=== PATIENT | male | born 1995 | race Two or more races ===

== ENCOUNTER 2016-11-07 15:47 | Emergency (ER) | payer OTHER ==
[~2016-11-07] VITALS: Ht 193 cm; Wt 95.3 kg
[2016-11-07 15:47] VITALS: BP 120/72
== END 2016-11-07 16:51 | disposition home or self-care (01) ==
LOC: ER 15:49
DX: J02.9 Acute pharyngitis, unspecified (principal); I10 Essential (primary) hypertension; G93.0 Cerebral cysts
CPT/HCPCS: 99281; A4606; Z7610; Z7502

== ENCOUNTER 2017-04-17 20:58 | Emergency (ER) | payer MEDICAID, OTHER ==
[~2017-04-17] VITALS: Ht 182.9 cm; Wt 99.8 kg
--- NOTE | 2017-04-17 22:00 | NUR ---
PT BIB SELF C/O CP SUBSTERNAL INTERMITTENTLY X8 MONTHS RADIATING TO BACK. NO PROVOCATION. SKIN WARM NONDIAPHORETIC. RESP EVEN UNLABORED. AMBULATORY WITH STEADY GAIT. IN ER BED 10.
--- NOTE | 2017-04-17 23:00 | NUR ---
US AT BEDSIDE
[2017-04-17 23:08] LABS: BASOPHILS % (AUTO) 0.3 % (0.0-2.0); EOSINOPHILS # (AUTO) 0.3 /CMM (0.0-0.7); EOSINOPHILS % (AUTO) 3.9 % (0.0-6.0); HEMATOCRIT 44 % (39-51); HEMOGLOBIN 14.6 g/dL (13.5-17.5); LYMPHOCYTES # (AUTO) 1.9 /CMM (0.8-4.8); LYMPHOCYTES % (AUTO) 25.6 % (20.0-44.0); MEAN CORPUSCULAR HEMOGLOBIN 27 PG (26.0-33.0); MEAN CORPUSCULAR HGB CONC 33 g/dl (31.0-36.0); MEAN CORPUSCULAR VOLUME 81 fL (80-96); MONOCYTES # (AUTO) 0.6 /CMM (0.1-1.30); MONOCYTES % (AUTO) 7.9 % (2.0-12.0); NEUTROPHILS # (AUTO) 4.5 /CMM (1.8-8.9); NEUTROPHILS % (AUTO) 62.3 % (43.0-81.0); PLATELET COUNT (AUTO) 237 /CMM (150-450); RDW COEFFICIENT OF VARIATION 13.1 (11.5-15.0); RED BLOOD CELL COUNT(AUTO) 5.45 MIL/uL (4.5-6.0); WHITE BLOOD COUNT (AUTO) 7.3 K/uL (4.3-11.0)
[2017-04-17 23:17] LABS: CALCIUM, SERUM 9.1 mg/dL (8.5-10.1); POTASSIUM 4.1 mmol/L (3.5-5.1)
[2017-04-17 23:25] LABS: ALBUMIN 4.2 g/dL (3.4-5.0); BILIRUBIN,DIRECT 0.1 mg/dL (0.0-0.2); BILIRUBIN,TOTAL 0.4 mg/dL (0.2-1.0); TOTAL PROTEIN, SERUM 8.4 g/dL (6.4-8.2)
--- NOTE | 2017-04-17 23:30 | NUR ---
REPORT GIVEN TO RIO ROBERTS RN FOR IVET. NAD NOTED. VSS.
[2017-04-17 23:36] VITALS: BP 125/74
--- NOTE | 2017-04-17 23:36 | NUR ---
Patient discharged to home in stable condition. Written and verbal after care instructions given. Patient verbalizes understanding of instruction. NAD NOTED.
== END 2017-04-17 23:37 | disposition home or self-care (01) ==
LOC: ER 20:59
DX: R07.89 Other chest pain (principal); I10 Essential (primary) hypertension
CPT/HCPCS: 36415; 71010-TC; 76705-TC; 80048-TC; 80076-TC; 83690-TC; 85025-TC; A4606; Z7610

== ENCOUNTER 2017-12-22 02:01 | Emergency (ER) | payer MEDICAID ==
[~2017-12-22] VITALS: Ht 193 cm; Wt 99.8 kg
[2017-12-22] MEDS ORDERED: TRAMADOL HCL 50 MG TABLET ONE (03:19)
[2017-12-22] MEDS ORDERED: CYCLOBENZAPRINE 10 MG TABLET ONE (03:19)
[2017-12-22] MEDS ORDERED: CYCLOBENZAPRINE 10 MG TABLET PO ONE (03:30)
[2017-12-22] MEDS ORDERED: TRAMADOL HCL 50 MG TABLET PO ONE (03:30)
--- NOTE | 2017-12-22 03:42 | NUR ---
PT TO CT.
--- NOTE | 2017-12-22 03:55 | NUR ---
pt retured from ct
[2017-12-22 05:09] LABS: APPEARANCE,URINE CLEAR (CLEAR); BILIRUBIN,URINE NEGATIVE (NEGATIVE); BLOOD, URINE NEGATIVE Ery/uL (NEGATIVE); COLOR,URINE YELLOW (YELLOW); KETONES,URINE NEGATIVE (NEGATIVE); LEUKOCYTE ESTERASE ,URINE NEGATIVE (NEGATIVE); NITRITE, URINE NEGATIVE (NEGATIVE); PROTEIN,URINE NEGATIVE (NEGATIVE); UGLUCOSE NEGATIVE (NEGATIVE); UROBILINOGEN,URINE 0.2 EU/dL (0.2)
--- NOTE | 2017-12-22 05:37 | NUR ---
Patient discharged to home in stable condition. Written and verbal after care instructions given. Patient verbalizes understanding of instruction.
[2017-12-22 05:38] VITALS: BP 124/62
== END 2017-12-22 05:39 | disposition home or self-care (01) ==
LOC: ER 02:02
DX: M54.5 Low back pain (principal); I10 Essential (primary) hypertension; F10.10 Alcohol abuse, uncomplicated
CPT/HCPCS: 72110; 81001; 99285; A4606; Z7610; 81000-TC

== ENCOUNTER 2020-06-28 16:33 | Emergency (ER) | payer BC, OTHER ==
[~2020-06-28] VITALS: Ht 193 cm; Wt 131.5 kg
--- NOTE | 2020-06-28 16:47 | NUR ---
PARTH AT BEDSIDE.
--- NOTE | 2020-06-28 17:00 | NUR ---
URINE SENT TO LAB.
[2020-06-28 17:22] LABS: APPEARANCE,URINE Clear (CLEAR); BILIRUBIN,URINE SMALL (NEGATIVE); BLOOD, URINE Negative Ery/uL (NEGATIVE); COLOR,URINE Yellow (YELLOW); KETONES,URINE Negative (NEGATIVE); LEUKOCYTE ESTERASE ,URINE Negative (NEGATIVE); NITRITE, URINE Negative (NEGATIVE); PROTEIN,URINE Negative (NEGATIVE); UGLUCOSE Negative (NEGATIVE)
[2020-06-28 17:27] LABS: BACTERIA,URINE Rare /HPF (None Seen); RBC,URINE NONE SEEN /HPF (0-2); SQUAMOUS EPITHELIAL CELL,UR Few /HPF (None Seen); WBC,URINE NONE SEEN /HPF (0-3)
[2020-06-28] MEDS ORDERED: LIDOCAINE /MPF 1% VIAL 5 ML VIAL ONE (17:50)
[2020-06-28] MEDS ORDERED: CEFTRIAXONE 500 MG VIAL ONE (17:50)
[2020-06-28] MEDS ORDERED: CEFTRIAXONE 500 MG VIAL IM ONE (18:00)
--- NOTE | 2020-06-28 18:05 | NUR ---
Patient discharged to home in stable condition. Written and verbal after care instructions given. Patient verbalizes understanding of instruction.
[2020-06-28 18:06] VITALS: BP 144/88
== END 2020-06-28 18:06 | disposition home or self-care (01) ==
LOC: ER 16:46
DX: N45.1 Epididymitis (principal); I10 Essential (primary) hypertension; Z60.2 Problems related to living alone
CPT/HCPCS: 76870; 81001; 87086; 87491; 87591; 96372; 99284; J0696; J3490; 81000-TC

== ENCOUNTER 2021-01-26 17:32 | Emergency (ER) | payer BC, OTHER ==
[~2021-01-26] VITALS: Ht 193 cm; Wt 122.5 kg
[2021-01-26] MEDS: IV NS 0.9% 1,000 ML BAG IV ONE (18:06)
--- NOTE | 2021-01-26 18:08 | NUR ---
"I was at work [employer] lightheaded/dizzy/palpitations". PT AAOX4, VSS. RR EVEN & UNLABORED. DENIES CP, SOB, N/V, WEAKNESS AT THIS TIME. PT SEEN & EVAL'D BY DR. GODINEZ. WILL CONT TO MONITOR.
[2021-01-26 18:14] LABS: BASOPHILS % (AUTO) 0.4 % (0.0-2.0); EOSINOPHILS % (AUTO) 1.6 % (0.0-6.0); HEMATOCRIT 47 % (39-51); LYMPHOCYTES # (AUTO) 1.6 /CMM (0.8-4.8); LYMPHOCYTES % (AUTO) 22.2 % (20.0-44.0); MEAN CORPUSCULAR HGB CONC 32 g/dl (31.0-36.0); MEAN CORPUSCULAR VOLUME 84 fL (80-96); MONOCYTES # (AUTO) 0.5 /CMM (0.1-1.30); MONOCYTES % (AUTO) 6.7 % (2.0-12.0); NEUTROPHILS % (AUTO) 69.1 % (43.0-81.0); PLATELET COUNT (AUTO) 234 /CMM (150-450); RED BLOOD CELL COUNT(AUTO) 5.56 MIL/uL (4.5-6.0); WHITE BLOOD COUNT (AUTO) 7.3 K/uL (4.3-11.0)
[2021-01-26 18:24] LABS: CALCIUM, SERUM 9.4 mg/dL (8.5-10.1); POTASSIUM 3.7 mmol/L (3.5-5.1)
--- NOTE | 2021-01-26 19:13 | NUR ---
Patient discharged to home in stable condition. Written and verbal after care instructions given. Patient verbalizes understanding of instruction.IV removed. Catheter intact and site benign. Pressure and 4x4 applied to site. No bleeding noted.
[2021-01-26 19:15] VITALS: BP 132/87
== END 2021-01-26 19:16 | disposition home or self-care (01) ==
LOC: ER 17:39
DX: R00.2 Palpitations (principal); R03.0 Elevated blood-pressure reading, without diagnosis of hypertension; R42 Dizziness and giddiness; E66.9 Obesity, unspecified; F10.10 Alcohol abuse, uncomplicated; Y90.9 Presence of alcohol in blood, level not specified; Z68.32 Body mass index [BMI] 32.0-32.9, adult; Z60.2 Problems related to living alone
CPT/HCPCS: 36415; 71045; 80048; 82962; 85025; 93005 ×2; 96360; 99285; J7030

== ENCOUNTER 2021-12-25 16:40 | Emergency (ER) | payer BC, OTHER ==
[~2021-12-25] VITALS: Ht 193 cm; Wt 146.1 kg
--- NOTE | 2021-12-25 16:45 | NUR ---
IB SELF C/O CHEST PAIN PRESSURE LIKE RADIATES TO THE BACK STARTED 1430H. PLACED COMFORTABLY ON BED 9. ATTACHED TO HAND MEAT SALTER. VITALS CHECKED.
--- NOTE | 2021-12-25 17:05 | NUR ---
SEEN BY DR GRACIA. WITH ORDERS TO BE CARRIED OUT.
[2021-12-25] MEDS ORDERED: ALPR0.255 PO (17:06)
[2021-12-25] MEDS ORDERED: CARV6.252 PO (17:06)
--- NOTE | 2021-12-25 17:11 | NUR ---
CXR DONE AT BEDSIDE
--- NOTE | 2021-12-25 17:20 | NUR ---
IV CANNULA G20 INSERTED ON LEFT FOREARM. FLUSHING DONE
--- NOTE | 2021-12-25 17:31 | NUR ---
GOVERNMENT GUARD AT BEDSIDE. BLOOD DRAWN DONE
[2021-12-25 18:05] LABS: BASOPHILS % (AUTO) 0.2 % (0.0-2.0); EOSINOPHILS % (AUTO) 2.9 % (0.0-6.0); HEMATOCRIT 41 % (39-51); HEMOGLOBIN 13.3 g/dL (13.5-17.5); LYMPHOCYTES # (AUTO) 2.3 K/uL (0.8-4.8); LYMPHOCYTES % (AUTO) 24.1 % (20.0-44.0); MEAN CORPUSCULAR HGB CONC 33 g/dl (31.0-36.0); MEAN CORPUSCULAR VOLUME 79 fL (80-96); MONOCYTES # (AUTO) 0.7 K/uL (0.1-1.30); MONOCYTES % (AUTO) 7.5 % (2.0-12.0); NEUTROPHILS # (AUTO) 6.3 K/uL (1.8-8.9); NEUTROPHILS % (AUTO) 65.3 % (43.0-81.0); PLATELET COUNT (AUTO) 250 K/uL (150-450); RED BLOOD CELL COUNT(AUTO) 5.12 MIL/uL (4.5-6.0); WHITE BLOOD COUNT (AUTO) 9.7 K/uL (4.3-11.0)
[2021-12-25 18:53] LABS: CALCIUM, SERUM 8.8 mg/dL (8.5-10.1); CARBON DIOXIDE 22 mmol/L (21-32); CHLORIDE 102 mmol/L (98-107); GLUCOSE 92 mg/dL (74-106); POTASSIUM 3.5 mmol/L (3.5-5.1); SODIUM SERUM 136 mmol/L (136-145); UREA NITROGEN, BLOOD 15 mg/dL (7-18)
[2021-12-25] MEDS ORDERED: LORA-259 PO (20:22)
--- NOTE | 2021-12-25 20:32 | NUR ---
IV removed. Catheter intact and site benign. Pressure and 4x4 applied to site. No bleeding noted.Patient discharged to home in stable condition. Written and verbal after care instructions given. Patient verbalizes understanding of instruction.
[2021-12-25 20:33] VITALS: BP 125/77
== END 2021-12-25 20:33 | disposition home or self-care (01) ==
LOC: ER 16:45
DX: R55 Syncope and collapse (principal); F41.9 Anxiety disorder, unspecified; I42.9 Cardiomyopathy, unspecified; Z60.2 Problems related to living alone; Z79.899 Other long term (current) drug therapy
CPT/HCPCS: 36415; 71045-TC; 80048-TC; 84484-TC; 85025-TC